=== PATIENT | male | born 1950 ===

== ENCOUNTER 2017-10-17 12:00 | Inpatient (IN) | payer OTHER ==
[~2017-10-17] VITALS: Ht 160 cm; Wt 149.0 kg
[2017-10-17] MEDS ORDERED: TAMS0.4C (14:55)
[2017-10-17] MEDS ORDERED: LIPIODOL10 ML (14:55)
[2017-10-17] MEDS ORDERED: AVAPRO75 MG (14:55)
[2017-10-17] MEDS ORDERED: VITAMINA D3 (14:56)
[2017-10-17] MEDS ORDERED: PRILOSEC OTC20 MG (14:56)
[2017-10-17] MEDS ORDERED: CLONAZEPAM0.5 M1 (14:56)
== END 2017-10-26 10:47 | disposition home or self-care (01) | DRG 331 ==
LOC: O/R 10-23 08:06 → SURH 10-23 08:06 → SURG 10-23 12:00 → SURH 10-23 15:59 → SURG 10-23 17:30 → SURH 10-26 10:47
PROVIDERS: Colon & Rectal Surgery
PROC: 0DTN4ZZ Resection of Sigmoid Colon, Percutaneous Endoscopic Approach (ICD-10-PCS; 2017-10-23)
PROC: 07TC4ZZ Resection of Pelvis Lymphatic, Percutaneous Endoscopic Approach (ICD-10-PCS; 2017-10-23)
PROC: 0DJD8ZZ Inspection of Lower Intestinal Tract, Via Natural or Artificial Opening Endoscopic (ICD-10-PCS; 2017-10-23)
PROC: 0DTP4ZZ Resection of Rectum, Percutaneous Endoscopic Approach (ICD-10-PCS; principal; 2017-10-23 17:30)
DX: C20 Malignant neoplasm of rectum (principal); I11.9 Hypertensive heart disease without heart failure; E78.00 Pure hypercholesterolemia, unspecified; F41.8 Other specified anxiety disorders

== ENCOUNTER 2019-05-23 05:55 | Day surgery (SDC) | payer OTHER ==
[~2019-05-23 05:55] MED LIST: AVAPRO75 MG; CLONAZEPAM0.5 M1; LIPIODOL10 ML; PRILOSEC OTC20 MG; TAMS0.4C; VITAMINA D3
== END 2019-05-23 10:30 | disposition home or self-care (01) ==
LOC: AMB-ENDOS 05:55
DX: C20 Malignant neoplasm of rectum (principal)